=== PATIENT | male | born 1980 | race Caucasian/White ===

== ENCOUNTER 2023-02-09 23:28 | Emergency (ER) | payer OTHER ==
[2023-02-09 23:38] VITALS: BP 154/97; PULSE 80; RESP 20; TEMP 98.2; BMI 43.2
[2023-02-10] MEDS ORDERED: valACYclovir HCL 500 MG TABLET (FP) PO ONE (01:23)
[2023-02-10] MEDS ORDERED: predniSONE 20 MG TABLET (UD) PO ONE (01:24)
[2023-02-10] MEDS ORDERED: predniSONE 20 MG TABLET (UD) ONE (01:27)
[2023-02-10] MEDS ORDERED: valACYclovir HCL 500 MG TABLET (FP) ONE (01:27)
== END 2023-02-10 01:45 | disposition home or self-care (01) ==
LOC: JER 23:28
DX: G51.0 Bell's palsy (principal)
CPT/HCPCS: 99283-25